=== PATIENT | female | born 1960 | race Caucasian/White ===

== ENCOUNTER 2020-02-23 06:54 | Outpatient (NON) | payer OTHER, SELFPAY ==
[2020-02-23 23:37] LABS: SARS-CoV-2 RNA PCR Positive
== END 2020-02-23 06:55 ==
LOC: ANHCOVIDDT 07:14
PROVIDERS: PCP Internal Medicine; Visit Provider Nurse Practitioner
DX: U07.1 COVID-19 (principal)
CPT/HCPCS: 87635; C9803; U0003

== ENCOUNTER 2020-02-25 00:54 | Emergency (ER) | payer OTHER, SELFPAY ==
[2020-02-25 00:59] VITALS: BP 156/84; PULSE 72; RESP 18; TEMP 36.6; O2SAT 95
--- NOTE | 2020-02-25 01:29 | ED.ALLEREA ---
HPI - Allergic Reaction General Chief complaint: Allergic Reaction Stated complaint: weakness/dizziness Time Seen by Provider: 02/25/20 01:08 Source: patient Mode of arrival: ambulatory Limitations: no limitations History of Present Illness HPI narrative: Patient 59-year-old female complaining of tongue and throat swelling after taking nystatin today. Patient states that she was prescribed nystatin due to oral thrush. Denies any extremity swelling or rash. Denies any chest pain, shortness of breath, abdominal pain, fever or chills. Patient's complaint is not weakness. Patient states that she was recently diagnosed with Covid. complaint: allergic reaction Related Data Home Medications Medication Instructions Recorded Confirmed blood sugar diagnostic #10 each 02/25/19 07/01/19 anastrozole 1 mg tablet 1 mg PO DAILY 05/11/19 07/01/19 vitamin B complex 1 tablet PO DAILY 05/11/19 07/01/19 Allergies Allergy/AdvReac Type Severity Reaction Status Date / Time No Known Allergies Allergy Mild Unverified 02/21/08 20:53 Review of Systems Review of Systems: All systems reviewed & are unremarkable except as noted in HPI and below Constitutional: Constitutional: Denies body ache(s), Denies chills, Denies excessive sweating, Denies fatigue, Denies fever(s), Denies headache(s), Denies lethargy, Denies malaise, Denies weakness and Denies weight loss Eyes: Eyes: Denies blurry vision, Denies change in vision and Denies loss of vision ENT: Denies dizziness, Denies ear discharge, Denies headache(s), Denies lip swelling, Denies epistaxis, Denies nasal congestion and Denies neck pain Cardiovascular: Cardiovascular: Denies chest pain, Denies chest pain at rest, Denies chest pain with activity, Denies diaphoresis, Denies rapid heart rate, Denies edema, Denies irregular heart rhythm, Denies lightheadedness, Denies palpitations, Denies dyspnea and Denies dyspnea on exertion Respiratory: Respiratory: Denies chest congestion, Denies cough, Denies hemoptysis, Denies dyspnea and Denies dyspnea on exertion Gastrointestinal: Gastrointestinal: Denies abdominal pain, Denies melena, Denies hematochezia, Denies diarrhea, Denies nausea, Denies vomiting and Denies hematemesis Musculoskeletal: Musculoskeletal: Denies abnormal gait, Denies deformity, Denies joint swelling, Denies limited range of motion, Denies neck pain and Denies numbness Neurologic: Denies Abnormal speech present, Denies abnormal gait, Denies confusion, Denies dizziness, Denies headache(s), Denies focal weakness, Denies loss of vision, Denies numbness, Denies Other visual disturbances, Denies Sensory deficit (Neuro) and Denies weakness Psychiatric: Psychiatric: Denies confusion, Denies depression, Denies auditory hallucinations, Denies homicidal ideation and Denies suicidal ideation Endocrine: Endocrine: Denies cold intolerance, Denies excessive sweating, Denies fatigue, Denies heat intolerance and Denies palpitations Hematologic/Lymphatic: Hematologic/Lymphatic: Denies easy bleeding and Denies easy bruising Allergic/Immunologic: Allergic/Immunologic: Denies lip swelling, Denies throat swelling and Denies tongue swelling PMFSH Past Medical History Medical History (Updated 02/25/20 @ 02:58 by Jose Landrum MD) Breast CA Chronic midline low back pain without sciatica GERD (gastroesophageal reflux disease) HLD (hyperlipidemia) Hypothyroidism (acquired) Pterygium of both eyes Pterygium of right eye corrected Type 2 diabetes mellitus, without long-term current use of insulin Surgical History Surgical History (Updated 02/25/19 @ 07:51 by Teresa Palumbo CMA) H/O lumpectomy Hx of cholecystectomy Family History Family History (Updated 10/10/17 @ 15:57 by DOCTOR UNKNOWN) Father Family history of pancreatic cancer Social History Social History (Updated 11/02/19 @ 08:37 by Teresa Palumbo CMA) Smoking status: Never smoker Alcohol intake: current Exam Cons
[2020-02-25 02:20] VITALS: BP 148/86; PULSE 76; RESP 16; TEMP 36.6; O2SAT 95
[2020-02-25] MEDS: diphenhydrAMINE HCl INJ 50 MG/ML VIAL 25 MG IV PUSH (02:51)
[2020-02-25] MEDS: EPINEPHrine HCL INJ 1 MG/ML AMPUL 0.3 MG IM (02:51)
[2020-02-25] MEDS: FAMOTIDINE 20 MG/2 ML VIAL IV PUSH (02:52)
[2020-02-25] MEDS: LACTATED RINGERS 1,000 ML 999 ML IV CONT (02:52)
[2020-02-25 03:35] VITALS: BP 148/91; PULSE 70; RESP 20; TEMP 36.5; O2SAT 94
== END 2020-02-25 03:36 | disposition home or self-care (01) ==
PROVIDERS: Emergency Provider Emergency Medicine; PCP Internal Medicine
DX: T78.40XA Allergy, unspecified, initial encounter (principal); U07.1 COVID-19; B37.0 Candidal stomatitis; K21.9 Gastro-esophageal reflux disease without esophagitis; E78.5 Hyperlipidemia, unspecified; E03.9 Hypothyroidism, unspecified; E11.9 Type 2 diabetes mellitus without complications; Z85.3 Personal history of malignant neoplasm of breast
CPT/HCPCS: 96361; 96372; 96374; 96375; 99284; J0171; J1100; J1200; J7120

== ENCOUNTER 2020-02-25 07:41 | Inpatient (IN) | payer OTHER, SELFPAY ==
[2020-02-25] VITALS (32 sets, daily range): BP systolic 136–205; BP diastolic 71–115; PULSE 75–114; RESP 16–33; TEMP 35.8–36.8; O2SAT 95–100; BMI 38.5
--- NOTE | 2020-02-25 | ECHO_ITS ---
Patient Info Name: Chantel Aguirre Age: 59 years : 1960 Gender: Female Ht: 67 in Wt: 217 lbs BSA: 2.19 m2 HR: 78 bpm BP: 165 / 99 mmHg Heart Rhythm: Sinus Rhythm Technical Quality: Fair Exam Date: 02/25/2020 4:04 PM Exam Location: [facility] Pulmonary Exam Room: icu 12 Patient Status: Inpatient Admit Date: 02/25/2020 Staff Ordering Physician: Brielle Patten NP Heating And Cooling Systems Engineer: Samira Corbin RDCS Attending Provider: Sharif Huertas MD Referring Physician: Sandor FOX; Exam Type: CA echo doppler color flow Study Info Indications - COVID ELEVATED BNP Complete two-dimensional, color flow and Doppler transthoracic echocardiogram is performed. Summary 1. Complete two-dimensional, color flow and Doppler transthoracic echocardiogram is performed. 2. Left ventricular chamber dimension is normal. 3. There is moderate concentric increased left ventricular wall thickness. 4. Left ventricular systolic function is normal, estimated at 50-55%. 5. There is trace mitral valve regurgitation. Left Ventricle Left ventricular chamber dimension is normal. Left ventricular systolic function is normal, estimated at 50-55%. There is moderate concentric increased left ventricular wall thickness. The left ventricular diastolic function is grade I diastolic dysfunction. Right Ventricle Right ventricular chamber dimension is normal. Left Atria Left atrial chamber dimension is normal. Right Atria Right atrial chamber dimension is normal. Aortic Valve The aortic valve is normal. Pulmonic Valve The pulmonic valve is normal. Mitral Valve The mitral valve has normal leaflets. There is trace mitral valve regurgitation. Tricuspid Valve The tricuspid valve leaflets are normal. Pericardium/Pleural The pericardium appears normal. Aorta The aortic root size at the sinus of Valsalva is normal. Left Ventricular Outflow Tract Name Value Normal LVOT 2D LVOT Diameter 2.0 cm LVOT Doppler LVOT Peak Gradient 4 mmHg LVOT Mean Gradient 2 mmHg LVOT VTI 21 cm LVOT VTI/AV VTI Ratio 0.9 LVOT Stroke Volume 63 ml LVOT CO 13.4 l/min LVOT CI 6.1 l/min/m2 Pulmonic Valve Name Value Normal PV Doppler PV Peak Gradient 2 mmHg Mitral Valve Name Value Normal MV Doppler MV Decel [place] 487 cm/s2 MV PHT 44 ms
--- NOTE | ~2020-02-25 | CT_ITS ---
EXAMINATION: CT soft tissue neck w con EXAM DATE: 02/25/2020 10:00 INDICATION: Shortness of air. Sore throat. COVID 19 positive. Thrush with tongue swelling. TECHNIQUE: Spiral CT of the neck was performed following intravenous injection of 75 mL Omnipaque 350 . Axial, coronal and sagittal images were reviewed. The dose-length product (DLP) for this examinat ion was 622.24 mGy-cm. The exposure was tailored according to patient size (auto mA exposure control ), and iterative reconstruction (ASIR) was used as additional dose reduction technique. There is no prior study for comparison. FINDINGS: The thyroid gland is unremarkable. The submandibular and parotid glands are symmetric. There is no cervical lymphadenopathy. There are no masses identified. The superior mediastinum is unremarkable. There is mild enlargement of the tonsils. Epiglottis is normal in thickness. Nasopharynx is collapsed at time of imaging. Hypopharynx is significantly narrowed at time of imaging, could be phasic or fro m regional edema. The opacified vasculature is patent. Right-sided cataract surgery. Right frontal sinus has moderate amount of mucoperiosteal thickening. Mild to moderate left maxillary sinus mucoperiosteal thickening. Bilateral groundglass opacities consistent with edema or infection . There is cervical spondylosis. There is cardiomegaly. IMPRESSION: 1. Narrowed hypopharyngeal and nasopharyngeal airway, could be phasic or from regional edema. Epiglo ttis normal in thickness. 2. Bilateral groundglass opacities, infection versus edema. 3. Right frontal and left maxillary sinus mucoperiosteal thickening. 4. Cardiomegaly. Reviewed, dictated and finalized at location A. T PARKING ATTENDANT IMPRESSION: 1. Narrowed hypopharyngeal and nasopharyngeal airway, could be phasic or from regional edema. Epiglottis normal in thickness. 2. Bilateral groundglass opacities, infection versus edema. 3. Right frontal and left maxillary sinus mucoperiosteal thickening. 4. Cardiomegaly.
--- NOTE | ~2020-02-25 | US_ITS ---
US abdomen limited INDICATION: Elevated liver function tests. PROCEDURE: Realtime right upper abdominal ultrasound. COMPARISON: No prior studies for comparison. FINDINGS: The pancreas is normal without focal mass or pancreatic ductal dilation. Liver echotexture is increased, consistent with fatty infiltration. There is normal directional flow in the portal ve in. Gallbladder is surgically absent. Common bile duct measures 4 mm. Right renal echotexture is unremar kable. IMPRESSION: 1: Fatty infiltration of the liver. Reviewed, dictated and finalized at location B. GHT CALLER
--- NOTE | ~2020-02-25 | XR_ITS ---
EXAMINATION: XR chest 1V portable EXAM DATE: 02/26/2020 06:19 INDICATION: Intubated. COVID 19 positive. TECHNIQUE: Portable AP frontal chest x-ray was obtained. Comparison is made to prior examination from 02/25/2020. FINDINGS: Endotracheal tube tip is 3.5 centimeters above the aviva. Feeding tube is in position. Sc attered bibasilar acute airspace disease partly atelectasis but also possibly with superimposed pneum onia. There is cardiomegaly. There is no pneumothorax suspected. There are no pleural effusions. Ther e are no osseous abnormalities identified. IMPRESSION: 1. Tubes in position. 2. Developing bibasilar atelectasis and possibly superimposed infection. Reviewed, dictated and finalized at location A. RANCE REP
--- NOTE | ~2020-02-25 | XR_ITS ---
EXAMINATION: XR chest ET placement EXAM DATE: 02/25/2020 10:41 INDICATION: Intubated. TECHNIQUE: Portable AP frontal chest x-ray was obtained. Comparison is made to prior examination from 02/25/2020. FINDINGS: Endotracheal tube is about 2 cm into the left mainstem bronchus, should be retracted approx imately 4 cm. Feeding tube is in position. There has been partial collapse of the right lung with ips ilateral mediastinal shift. There is cardiomegaly. Left lung is clear, cannot appreciate the groundgl ass opacity seen on CT. No pneumothorax. IMPRESSION: 1. ET tube in left mainstem bronchus, please retract 4 cm. 2. Partially collapsed right lung. I discussed endotracheal position, recommendation emergency room nurse at 02/25/2020 10:45 M1A1 TANK CREWMAN. Reviewed, dictated and finalized at location A. M1A1 TANK CREWMAN IMPRESSION: 1. ET tube in left mainstem bronchus, please retract 4 cm. 2. Partially collapsed right lung. I discussed endotracheal position, recommendation emergency room nurse at 2019 10:45 M1A1 TANK CREWMAN.
--- NOTE | ~2020-02-25 | XR_ITS ---
XR abdomen NG/feed tube insert 02/25/2020 10:41 Indication: G-tube placement Procedure: AP portable chest Comparison: No prior studies for comparison. Findings: NG tube in the stomach. There is opacification the right lung with mediastinal shift to the right, compatible with volume loss endotracheal tube tip 1 cm above the aviva. There are cholecyste ctomy clips. Impression: 1: NG tube in the stomach. 2: Right thoracic volume loss with mediastinal shift to the right. Reviewed, dictated and finalized at location B. RACT SHELTERED WORKSHOP SUPERVISOR Impression: 1: NG tube in the stomach. 2: Right thoracic volume loss with mediastinal shift to the right.
--- NOTE | ~2020-02-25 | CT_ITS ---
EXAMINATION: CT brain wo con DATE: 02/27/2020 09:17 INDICATION: Patient unresponsive TECHNIQUE: Computed tomography (CT) of the head was performed without intravenous contrast. The dose- length product was 605.33 mGy-cm. Automated exposure control and iterative reconstruction technique w ere employed. COMPARISON: None FINDINGS: Brain parenchymal volume is normal for age. There are scattered mild periventricular and martinez bcortical white matter changes, most likely related to small vessel ischemic disease (microangiopathy ). No ventriculomegaly or midline shift. Basilar cisterns are patent. No acute intracranial hemorrhag e, infarction, mass or mass effect. Midline sagittal images are unremarkable. There is mucosal thicke dexter of the sphenoid, ethmoid and right frontal sinuses. Mastoids are pneumatized. IMPRESSION: 1. No acute intracranial abnormality. 2: Moderate sinus disease. 3: Chronic age-related findings. Reviewed, dictated and finalized at location A. TAL COMPOSER
--- NOTE | ~2020-02-25 | XR_ITS ---
XR chest 1V portable 02/25/2020 11:11 Indication: Endotracheal tube evaluation Procedure: AP portable chest Comparison: 02/25/2020 Findings: Endotracheal tube tip 4.1 cm above the aviva. NG tube in the stomach. Cardiomegaly. Elevat ed right diaphragm. Right basilar atelectasis. Shallow inspiration. Impression: 1: Elevated right diaphragm with right basilar atelectasis. 2: Cardiomegaly. Reviewed, dictated and finalized at location B. A/C TECH Impression: 1: Elevated right diaphragm with right basilar atelectasis. 2: Cardiomegaly.
--- NOTE | ~2020-02-25 | XR_ITS ---
EXAMINATION: XR chest 1V portable DATE: 02/25/2020 08:51 INDICATION: Shortness of breath. TECHNIQUE: A single frontal view of the chest was obtained. COMPARISON: None. FINDINGS: The lung volumes are small. There are airspace opacities at the lung bases. There are mild airspace opacities in the perihilar regions. There is a small left pleural effusion. No pneumothorax. The heart size is obscured. IMPRESSION: 1. Small lung volumes with airspace opacities at the lung bases and in the perihilar regions, consist ent with atelectasis versus pneumonia. 2. Small left pleural effusion. Reviewed, dictated and finalized at location A. OWS APPLICATION DEVELOPER IMPRESSION: 1. Small lung volumes with airspace opacities at the lung bases and in the haley hilar regions, consistent with atelectasis versus pneumonia. 2. Small left pleural effusion.
--- NOTE | ~2020-02-25 | XR_ITS ---
XR chest 1V portable 02/27/2020 05:44 Indication: Respiratory failure Procedure: AP view of the chest Comparison: Comparison to multiple prior studies sequentially, with oldest reviewed study dated 05/2019. Findings: Endotracheal tube tip 3.9 cm above the aviva. NG tube in the stomach. Right subclavian PIC C line tip in the SVC. Cardiomegaly. Bilateral lower lung zone airspace disease. No pneumothorax. Impression: 1: Bilateral lower lung zone airspace disease which may represent atelectasis or pneumonia. Slight in terval improvement since most recent study. Reviewed, dictated and finalized at location A. BED PRESS OPERATOR Impression: 1: Bilateral lower lung zone airspace disease which may represent atelectasis o r pneumonia. Slight interval improvement since most recent study.
--- NOTE | 2020-02-25 08:43 | ED.SOB ---
HPI - SOB/Dyspnea General Chief Complaint: Shortness of Breath/Dyspnea Stated Complaint: weakness Time Seen by Provider: 02/25/20 07:57 History of Present Illness HPI Narrative: Patient is a 59-year-old female who presents the ER with shortness of breath. She is found to be hypoxic by EMS 80% on room air. Patient has been seen in the ER last night for concern regarding an allergic reaction to oral nystatin. Patient reports that since 10 AM yesterday patient has been a unable to speak due to sore throat and feeling of swelling. She also reports that this is also causing her to not be able to swallow. Patient is communicating by writing on a piece of paper. Patient appears fatigued but is tolerating oral secretions. Reports she was diagnosed with COVID-19 yesterday after being swabbed the day before. Patient endorses some nausea. Related Data Home Medications Medication Instructions Recorded Confirmed anastrozole 1 mg tablet 1 mg PO DAILY 05/11/19 02/25/20 vitamin B complex 1 tablet PO DAILY 05/11/19 02/25/20 ketorolac 1 drp OPHTHALMIC (EYE) TID 02/25/20 02/25/20 polymyxin B sulf-trimethoprim 1 drp OPHTHALMIC (EYE) QID 02/25/20 02/25/20 prednisolone acetate 1 drp OPHTHALMIC (EYE) QID 02/25/20 02/25/20 Allergies Allergy/AdvReac Type Severity Reaction Status Date / Time nystatin Allergy Difficulty Verified 02/25/20 14:16 Swallowing Review of Systems Review of Systems: ROS unobtainable: Yes other (Review of systems limited due to patient's decreased ability to talk.) Constitutional: Constitutional: Denies chills, Reports fatigue, Denies fever(s) and Reports weakness ENT: Reports dysphagia, Reports nasal congestion and Reports sore throat Cardiovascular: Cardiovascular: Denies chest pain and Denies radiating jaw, neck or arm pain Respiratory: Respiratory: Denies cough, Reports dyspnea and Denies wheezing PMFSH Past Medical History Medical History (Updated 02/25/20 @ 16:25 by Daniel Alvarez MD) Breast CA treated with radiation and lumpectomy Chronic midline low back pain without sciatica GERD (gastroesophageal reflux disease) HLD (hyperlipidemia) HTN (hypertension), benign Hypothyroidism (acquired) Pterygium of both eyes Pterygium of right eye corrected Type 2 diabetes mellitus, without long-term current use of insulin Surgical History Surgical History H/O lumpectomy Hx of cholecystectomy Family History Family History Father Family history of pancreatic cancer Social History Social History (Updated 02/25/20 @ 14:01 by Brielle Patten NP) Social History: the patient currently works for [employer] 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 She is a full code. Has 1 child nonsmoker. Smoking status: Never smoker Alcohol intake: unknown Substance use: unknown Living arrangements: with family Occupation/Education: occupation Spiritual care concerns: No Exam Narrative: Exam Narrative: GENERAL: ill-appearing, well-nourished, and in no acute distress. HEAD: Normocephalic, atraumatic. EYES: PERRL and EOMI. ENT: Mucous membranes moist. White patch noted left upper hard palate. Uvula midline and nonedematous. No edema to the tongue. No lip swelling. NECK: Supple. CHEST: Clear to auscultation. Tachypnea. No wheezing/rhonchi or stridor. HEART: Regular rate and rhythm. Normal peripheral pulses. ABDOMEN: Soft, nontender, nondistended. EXTREMITIES: Normal range of motion. No edema. SKIN: Warm, dry, no rash. NEURO: Alert and oriented x3. Course Reevaluation(s) Reevaluation #1: Patient has been resting comfortably in ED. Has been titrated on 4 L of O2 via nasal cannula and was satting in the mid 90s. Patient was reports some nausea before CT and zofran was ordered. On CT patient got up from the bed and laid herself on
[2020-02-25 09:06] LABS: Alanine Aminotransferase 146 U/L (4-35); Albumin Level 3.7 g/dL (3.5-5.1); Alkaline Phosphatase 362 U/L (38-126); Anion Gap 12 mmol/L (8-16); Aspartate Amino Transferase 57 U/L (14-36); Bilirubin,Total 0.9 mg/dL (0.2-1.3); Blood Urea Nitrogen 15 mg/dL (7-17); CRP 4.4 mg/dL (<1.0); Calcium 8.6 mg/dL (8.4-10.2); Carbon Dioxide 25 mmol/L (22-30); Chloride 101 mmol/L (98-107); Estimated Glomerular Filt Rate > 60; Glucose 492 mg/dL (65-105); Potassium 3.6 mmol/L (3.4-5.0); Sodium 138 mmol/L (137-145)
[2020-02-25 09:25] LABS: Alveolar/Arterial O2 Gradient 121.4 mmHg; Base Excess ABG -0.1 mEq/l (+/-2.0); Carboxyhemoglobin 0.1 % THb (0-2.0); Fractional Inspired Oxygen 36 %; HCO3 ABG 27.2 mEq/l (22.0-26.0); Methemoglobin ABG 0.2 %THb (0-1.5); Oxygen Content ABG 16.3 %vol (16.0-22.0); Oxygen Saturation ABG 92.2 % (95.0-100.0); Oxyhemoglobin 91.7 % THb (90.0-100.0); PO2 ABG 70.3 mmHg (80.0-100.0); PO2 FiO2 Ratio Arterial Blood 1.95 %; Total Hemoglobin 12.6 g/dL (12.0-18.0); pH ABG 7.304 (7.350-7.450)
[2020-02-25 09:26] LABS: Device NASAL CANNULA; Modified Allen's Test Pass; Site Drawn RIGHT RADIAL
[2020-02-25 09:34] LABS: Basophils Percent Auto 0.2 % (0.2-1.2); Hematocrit 36.3 % (37.0-47.0); Hemoglobin 11.7 g/dL (12.0-15.0); Immature Granulocyte Absolute 0.35 K/mm3 (0.00-0.031); Immature Granulocyte Percent A 2.8 % (0-0.5); Lymphocytes Absolute Auto 0.94 K/mm3 (0.9-3.2); Lymphocytes Percent Auto 7.6 % (18.3-44.2); Mean Corpuscular HGB Conc 32.2 g/dl (32-36); Mean Corpuscular Hemoglobin 28.7 pg (26-34); Mean Corpuscular Volume 89.2 fl (80-100); Mean Platelet Volume 9.6 fl (7.4-10.4); Monocytes Absolute Auto 0.3 K/mm3 (0.1-0.6); Monocytes Percent Auto 2.2 % (2.6-8.5); Neutrophils Absolute Auto 10.7 K/mm3 (1.3-6.7); Neutrophils Percent Auto 87.2 % (45.5-73.1); Platelet Count Result 569 k/mm3 (150-375); Red Blood Count 4.07 M/mm3 (4.2-5.4); Red Cell Distribution Width 13.6 % (11.5-14.5); White Blood Count 12.3 K/mm3 (4.5-10.0)
[2020-02-25 09:44] LABS: Prothrombin Time 14.1 Seconds (11.1-14.7)
[2020-02-25 09:45] LABS: Partial Thromboplastin Time 30.3 SECONDS (22.3-36.8)
--- NOTE | 2020-02-25 09:59 | PC.NURSE ---
PT BROUGHT BACK EMERGENTLY FROM CT AFTER BECOMING UNRESPONSIVE AFTER SCAN. DR LOUISE AT BEDSIDE. NRB 15L PLACED. PREPARING TO INTUBATE PT AT THIS TIME. HR 190'S SAT'S 70'S WITH GOOD PLETH. RESPS 22 BP164/103.
--- NOTE | 2020-02-25 10:03 | PC.NURSE ---
30ETOMIDATE GIVEN 100SUCC GIVEN
--- NOTE | 2020-02-25 10:07 | ECG_ITS ---
Measurements Intervals [place] Rate: 86 P: 24 WV: 159 QRS: -30 QRSD: 110 T: 7 QT: 425 QTc: 510 Interpretive Statements SINUS RHYTHM INCOMPLETE RIGHT BUNDLE BRANCH BLOCK LOW QRS VOLTAGE IN PRECORDIAL LEADS VOLTAGE CRITERIA FOR LVH POOR R WAVE PROGRESSION, ANTERIOR LEADS BORDERLINE T WAVE ABNORMALITY- INFERIOR LEADS BASELINE ARTIFACT- I, II, III, AVR, AVL, AVF, V5 BORDERLINE ECG Electronically Signed On 02-25-2020 11:10:29 BRIDGE GANG WORKER by Randal Dvais D.O.
[2020-02-25 10:29] LABS: NT Pro B Type Natriuretic Pept 2960 PG/ML (5-100)
[2020-02-25] MEDS: ONDANSETRON INJ 4 MG/2 ML VIAL IV PUSH (10:58)
[2020-02-25] MEDS: FUROSEMIDE INJ 40 MG/4 ML VIAL IV PUSH (11:00)
[2020-02-25 11:47] LABS: Reflex Lactic Acid Yes or No Add Lactic
[2020-02-25] MEDS: PROPOFOL IV EMULSION 100 ML 5 MG IV CONT (13:10)
--- NOTE | 2020-02-25 13:34 | PM.IMHP ---
H&P: HPI History of Present Illness Date/Time: 02/25/20 13:34 Chief complaint: acute respiratory failure,chf exacerbation,covid Narrative: Chantel Aguirre is a 59 year old female who was seen in the emergency room earlier this morning she had been complaining of tongue and throat swelling after taking nystatin today. The patient stated that she was prescribed nystatin due to oral thrush. Patient tested positive for COVID-19 on 02/23/2020. The patient came into the emergency room today because she was short of breath. She is found to be hypoxic by EMS at 80% on room air. Patient felt that she was having allergy agree action to the oral nystatin. Patient was unable to speak due to sore throat and feeling like her throat was swollen up. When I saw the patient in the emergency room she had been intubated. Her pH was found to be 7.30 on her blood gases CO2 was 56. The patient initially had been on 4 L per nasal cannula and was saturating in the mid 90s. The patient was feeling nauseated before her CT scan and Zofran was ordered. The patient was on the table for the CT scanner and stopped breathing. She was immediately wheeled over by the traffic technician the patient was in distress and therefore emergent intubation was required. When I talked to the patient she was able to answer questions by shaking her head yes or no. She is currently not on any IV sedation. It looks like she has a tidal volume of 400 with a PEEP of 5. Chest x-ray was obtained and the ET tube was pulled back. ICU fisher pound net or trap had been notified and agreed to accept the patient. The patient was started on IV antibiotics. She is afebrile. ALT was noted to be 146. Explain past days 362. C reactive protein 4.4. BNP 2960. The patient was responsive enough to answer questions by shaking her head yes and no. Patient was admitted inpatient to ICU on date of service 02/25/20. Review of Systems Review of Systems: All systems reviewed & are unremarkable except as noted in HPI and below Constitutional: Constitutional: Reports as per HPI and Reports no additional constitutional complaints Eyes: Eyes: Reports as per HPI and Reports no additional eye complaints ENT: Reports system reviewed and no additional complaints, except as documented and Reports Normal hearing present Cardiovascular: Cardiovascular: Reports no additional cardiovascular complaints Respiratory: Respiratory: Reports no additional respiratory complaints and Reports no additional respiratory complaints Gastrointestinal: Gastrointestinal: Reports as per HPI and Reports no additional gastrointestinal complaints Musculoskeletal: Musculoskeletal: Reports no additional musculoskeletal complaints Integumentary/Breasts: Skin/Breast: Reports system reviewed and no additional complaints, except as docu and Reports as per HPI Neurologic: Reports system reviewed and no additional complaints, except as documented, Reports as per HPI and Reports Normal hearing present Psychiatric: Psychiatric: Reports no additional psychiatric complaints and Reports as per HPI Endocrine: Endocrine: Reports no additional endocrine complaints Hematologic/Lymphatic: Hematologic/Lymphatic: Reports no additional hematologic/lymphatic complaints Allergic/Immunologic: Allergic/Immunologic: Reports no additional allergic/immunologic complaints [facility] Past Medical History Medical History (Updated 02/25/20 @ 14:24 by Brielle Patten NP) Breast CA treated with radiation and lumpectomy Chronic midline low back pain without sciatica GERD (gastroesophageal reflux disease) HLD (hyperlipidemia) HTN (hypertension), benign Hypothyroidism (acquired) Pterygium of both eyes Pterygium of right eye corrected Type 2 diabetes mellitus, without long-term current use of insulin Surgical History Surgical History H/O lumpectomy Hx of cholecystectomy Family History Family History (Reviewed 02/25/20
--- NOTE | 2020-02-25 14:08 | ADMGEN ---
This patient, Chantel Aguirre, was admitted to Intensive Care Unit-12. Patient/family oriented to hospital policies and general routines including ID bracelet, bed and alarms, visiting hours, pain management, procedures, bathroom and other care routines, personal items, smoking policy, room service/diet, and visiting hours. Information on how to activate the Rapid Response Team has been discussed. Patient/Family are encouraged to report perceived risks to care and to ask questions if they do not understand what they are told or what they should do.
--- NOTE | 2020-02-25 14:20 | PC.NURSE ---
Patient's ring removed from her finger and in a ziploc bag taped to her white board. Patient has clothing and her purse on the desk in her room.
--- NOTE | 2020-02-25 14:31 | WPDCNINT ---
Assessment and Plan Assessment and plan (1) Acute respiratory failure: Code(s): J96.00 - Acute respiratory failure, unspecified whether with hypoxia or hypercapnia Status: Acute Assessment and Plan: Patient had possible allergic reaction, angioedema. -CT scan of the neck and soft tissues on 02/25/2020 showed narrowed hypopharyngeal and nasopharyngeal airway, could be phasic or from recent edema. The glottis normal in thickness. Bilateral ground-glass opacities, infectious versus edema, right frontal and left maxillary sinus mucoperiosteal thickening, cardiomegaly. -patient was in respiratory arrest post CT scan of the neck, unresponsive, was intubated for airway protection. -chest x-ray shows atelectasis right-sided -patient currently on CMV mode of ventilation, peep of 5, 70% FiO2, ABGs post intubation have not been obtained, have ordered ABG stat, will review ABGs and make necessary ventilator changes - (2) COVID-19: Code(s): U07.1 - COVID-19 Status: Acute Assessment and Plan: Tested positive for COVID-19 on 02/23/2020 -started on dexamethasone Remdesivir -continue droplet, airborne contact isolation precautions -will monitor inflammatory markers (3) Allergic reaction caused by a drug: Qualifiers: Encounter type: initial encounter Qualified Code(s): T78.40XA - Allergy, unspecified, initial encounter Code(s): T78.40XA - Allergy, unspecified, initial encounter Status: Acute Assessment and Plan: Patient possibly with allergic reaction to nystatin, patient fell swelling of her throat, difficulty talking and swallowing -patient started on dexamethasone for COVID-19, -will add H1 and H2 blockers (4) Type 2 diabetes mellitus, without long-term current use of insulin: Qualifiers: Diabetes mellitus complication status: without complication Qualified Code(s): E11.9 - Type 2 diabetes mellitus without complications Code(s): E11.9 - Type 2 diabetes mellitus without complications Status: Acute Assessment and Plan: Continue sliding scale insulin Accu-Cheks (5) HTN (hypertension), benign: Code(s): I10 - Essential (primary) hypertension Status: Chronic Assessment and Plan: Hydralazine p.r.n. -patient on propofol which may for the pressures to -if blood pressures remain elevated will start home losartan (6) Elevated liver enzymes: Code(s): R74.8 - Abnormal levels of other serum enzymes Status: Acute Assessment and Plan: Elevated liver enzymes, could be related to for vascular congestion secondary CHF -check right upper quadrant ultrasound -hepatitis panel -echocardiogram (7) DVT prophylaxis: Code(s): Z29.9 - Encounter for prophylactic measures, unspecified Status: Acute Assessment and Plan: Lovenox 40 mg q.12 hours Additional Plan D/w Miguel Ángel, Pt's and updated him [facility] pt's condition and plan of care. I answered all questions Code status: Full code Critical care time spent: 44 minutes Due to a high probability of clinically significant, life threatening deterioration, the patient required my highest level of preparedness to intervene emergently and I personally spent this critical care time directly and personally managing the patient. This critical care time included obtaining a history; examining the patient; pulse oximetry; ordering and review of studies; arranging urgent treatment with development of a management plan; evaluation of patient's response to treatment; frequent reassessment; and discussions with other providers. It was exclusive of separately billable procedures and treating other patients and teaching time. Please see Assessment and Plan section and the rest of the note for further information on patient assessment and treatment Residential Sales Consult Note Consult date: 02/25/20 Time Seen: 13:44 Reason for consult: Acute respiratory failure, allergic reaction w
[2020-02-25 14:52] LABS: Alveolar/Arterial O2 Gradient 318.5 mmHg; Base Excess ABG 3.6 mEq/l (+/-2.0); Fractional Inspired Oxygen 70 %; HCO3 ABG 27.7 mEq/l (22.0-26.0); Oxygen Content ABG 16.9 %vol (16.0-22.0); Oxygen Saturation ABG 98.9 % (95.0-100.0); Oxyhemoglobin 97.7 % THb (90.0-100.0); PCO2 ABG 39.8 mmHg (35.0-45.0); PO2 ABG 137.8 mmHg (80.0-100.0); PO2 FiO2 Ratio Arterial Blood 1.97 %; Total Hemoglobin 12.1 g/dL (12.0-18.0)
[2020-02-25 14:53] LABS: Arterial Blood Gas PEEP 5 cmH2O; Arterial Blood Gas Tidal Volume 400 ml; Arterial Blood Gas Vent Mode CMV; Arterial Blood Gas Ventilator rate 18 /MIN; Device VENTILATOR; Site Drawn RIGHT BRACHIAL
[2020-02-25] MEDS: DEXAMETHASONE SOD PHOS INJ 4 MG/ML VIAL 6 MG IV PUSH (15:06)
[2020-02-25] MEDS: diphenhydrAMINE HCl INJ 50 MG/ML VIAL 25 MG IV PUSH ×3 (15:12→23:44)
[2020-02-25] MEDS: FAMOTIDINE 20 MG/2 ML VIAL IV PUSH ×2 (15:22→20:40)
[2020-02-25 15:38] LABS: Alanine Aminotransferase 142 U/L (4-35); Lactic Acid Reflex 1.8 mmol/L (0.7-2.1)
[2020-02-25] MEDS: PROPOFOL IV EMULSION 100 ML 8.89 MG IV CONT (15:46)
[2020-02-25] MEDS: LIDOCAINE HCL 1% PF INJ 5 ML VIAL INFILTRATE (16:30)
[2020-02-25] MEDS: SODIUM CHLORIDE 0.9% IV 1,000 ML 75 ML IV CONT (17:12)
[2020-02-25] MEDS: REMDESIVIR 200 MG/NS 250 ML 200 MG/250 ML BAG 250 MG IVPB (17:12)
[2020-02-25] MEDS: KETOROLAC 0.5% OP SOLN 5 ML BOTTLE 1 DROP EACH EYE (17:18)
[2020-02-25] MEDS: INSULIN ASPART (*BKC) 100 UNITS/ML SUB-Q ×2 (17:26→23:54)
[2020-02-25] MEDS: hydrALAZINE HCL 20 MG/ML VIAL 10 MG IV PUSH (17:27)
[2020-02-25 18:51] LABS: Hepatitis B Surface Antigen Negative (Negative)
[2020-02-25 18:56] LABS: HAV RESULT Negative (Negative); Hepatitis B Core IgM Result Negative (Negative)
[2020-02-25 19:08] LABS: Hepatitis C Virus Antibody Negative (Negative)
[2020-02-25] MEDS: PROPOFOL IV EMULSION 100 ML 14.82 MG IV CONT (19:14)
[2020-02-25] MEDS: INSULIN ASPART (*BKC) 100 UNITS/ML 6 UNITS SUB-Q (19:15)
[2020-02-25 19:21] LABS: Glucose Point of Care 440 (65-105)
[2020-02-25] MEDS: ENOXAPARIN 40 MG/0.4 ML SYRINGE SUB-Q (20:40)
[2020-02-25] MEDS: IPRATROPIUM BR 0.02% INH SOLN 0.5 MG/2.5 ML VIAL INHALATION (21:30)
[2020-02-25] MEDS: ALBUTEROL SULFATE NEB 2.5 MG/0.5 ML INH INHALATION (21:30)
[2020-02-25] MEDS: CENTRAL LINE FLUSH 10 ML IV PUSH (22:18)
[2020-02-26] VITALS (37 sets, daily range): BP systolic 142–198; BP diastolic 67–104; PULSE 66–112; RESP 16–27; TEMP 35.8–36.9; O2SAT 98–100
[2020-02-26 00:48] LABS: Glucose Point of Care 331 (65-105)
[2020-02-26 00:48] LABS: Glucose Point of Care > 500 (65-105)
[2020-02-26] MEDS: hydrALAZINE HCL 20 MG/ML VIAL 10 MG IV PUSH ×4 (02:11→14:27)
[2020-02-26] MEDS: PROPOFOL IV EMULSION 100 ML 14.82 MG IV CONT ×4 (02:23→19:44)
[2020-02-26] MEDS: ALBUTEROL SULFATE NEB 2.5 MG/0.5 ML INH INHALATION ×4 (02:29→19:51)
[2020-02-26] MEDS: IPRATROPIUM BR 0.02% INH SOLN 0.5 MG/2.5 ML VIAL INHALATION ×4 (02:29→19:51)
[2020-02-26 05:04] LABS: Alveolar/Arterial O2 Gradient 224.5 mmHg; Base Excess ABG 5.6 mEq/l (+/-2.0); Carboxyhemoglobin 0.3 % THb (0-2.0); Fractional Inspired Oxygen 50 %; Methemoglobin ABG 0.2 %THb (0-1.5); Oxygen Content ABG 15.8 %vol (16.0-22.0); Oxygen Saturation ABG 97.5 % (95.0-100.0); Oxyhemoglobin 96.2 % THb (90.0-100.0); PCO2 ABG 37.8 mmHg (35.0-45.0); PO2 ABG 89.5 mmHg (80.0-100.0); PO2 FiO2 Ratio Arterial Blood 1.79 %; Reduced Hemoglobin 3.3 %THb (0-5.0); Total Hemoglobin 11.6 g/dL (12.0-18.0); pH ABG 7.503 (7.350-7.450)
[2020-02-26 05:05] LABS: Modified Allen's Test Pass; Site Drawn RIGHT RADIAL
[2020-02-26 05:06] LABS: Arterial Blood Gas PEEP 5 cmH2O; Arterial Blood Gas Tidal Volume 400 ml; Arterial Blood Gas Vent Mode CMV; Arterial Blood Gas Ventilator rate 16 /MIN; Device VENTILATOR
[2020-02-26] MEDS: CENTRAL LINE FLUSH 10 ML IV PUSH ×2 (05:27→14:29)
[2020-02-26] MEDS: diphenhydrAMINE HCl INJ 50 MG/ML VIAL 25 MG IV PUSH ×3 (05:29→18:48)
[2020-02-26] MEDS: LEVOTHYROXINE SODIUM INJ 100 MCG/5 ML VIAL 56 MCG IV PUSH (05:31)
[2020-02-26 05:49] LABS: Basophils Percent Auto 0.2 % (0.2-1.2); Eosinophils Percent Auto 0.1 % (0-4.4); Hematocrit 32.8 % (37.0-47.0); Hemoglobin 10.8 g/dL (12.0-15.0); Immature Granulocyte Absolute 0.18 K/mm3 (0.00-0.031); Immature Granulocyte Percent A 1.6 % (0-0.5); Lymphocytes Absolute Auto 1.33 K/mm3 (0.9-3.2); Lymphocytes Percent Auto 12.1 % (18.3-44.2); Mean Corpuscular HGB Conc 32.9 g/dl (32-36); Mean Corpuscular Hemoglobin 28.9 pg (26-34); Mean Corpuscular Volume 87.7 fl (80-100); Mean Platelet Volume 9.4 fl (7.4-10.4); Monocytes Absolute Auto 0.6 K/mm3 (0.1-0.6); Monocytes Percent Auto 5.5 % (2.6-8.5); Neutrophils Absolute Auto 8.9 K/mm3 (1.3-6.7); Neutrophils Percent Auto 80.5 % (45.5-73.1); Platelet Count Result 453 k/mm3 (150-375); Red Blood Count 3.74 M/mm3 (4.2-5.4); Red Cell Distribution Width 13.8 % (11.5-14.5)
[2020-02-26 06:09] LABS: Hemoglobin A1C 8.1 % (<5.7)
[2020-02-26 06:12] LABS: Alanine Aminotransferase 125 U/L (4-35); Albumin Level 3.3 g/dL (3.5-5.1); Alkaline Phosphatase 317 U/L (38-126); Anion Gap 7 mmol/L (8-16); Aspartate Amino Transferase 57 U/L (14-36); Bilirubin,Total 0.5 mg/dL (0.2-1.3); Blood Urea Nitrogen 16 mg/dL (7-17); CRP 2.4 mg/dL (<1.0); Calcium 8.6 mg/dL (8.4-10.2); Carbon Dioxide 35 mmol/L (22-30); Chloride 100 mmol/L (98-107); Estimated CRCL calculation 81 ml/min; Estimated Glomerular Filt Rate > 60; Glucose 312 mg/dL (65-105); Lactate Dehydrogenase 554 U/L (313-618); Magnesium 2.3 mg/dL (1.6-2.3); Phosphorus 3.6 mg/dL (2.5-4.5); Potassium 2.4 mmol/L (3.4-5.0); Sodium 142 mmol/L (137-145)
[2020-02-26] MEDS: INSULIN ASPART (*BKC) 100 UNITS/ML SUB-Q (06:20)
[2020-02-26] MEDS: SODIUM CHLORIDE 0.9% IV 1,000 ML 75 ML IV CONT (08:10)
--- NOTE | 2020-02-26 09:24 | WPDINTPN ---
Progress Note: A&P Assessment and Plan (1) Acute respiratory failure: Code(s): J96.00 - Acute respiratory failure, unspecified whether with hypoxia or hypercapnia Status: Acute Assessment and Plan: Patient had possible allergic reaction, angioedema. -CT scan of the neck and soft tissues on 02/25/2020 showed narrowed hypopharyngeal and nasopharyngeal airway, could be phasic or from recent edema. The glottis normal in thickness. Bilateral ground-glass opacities, infectious versus edema, right frontal and left maxillary sinus mucoperiosteal thickening, cardiomegaly. -patient was in respiratory arrest post CT scan of the neck, unresponsive, was intubated for airway protection. -chest x-ray shows atelectasis right-sided -patient currently on CMV mode of ventilation, peep of 5, 50%FiO2, wean FiO2 maintain O2 sats between 92-96%. -patient has a very weak cuff leak, continue steroids, H1 and H2 blockers -neck swollen with some induration bilaterally, tongue is also swollen (2) COVID-19: Code(s): U07.1 - COVID-19 Status: Acute Assessment and Plan: Tested positive for COVID-19 on 02/23/2020 -started on dexamethasone Remdesivir -continue droplet, airborne contact isolation precautions -will monitor inflammatory markers (3) Allergic reaction caused by a drug: Qualifiers: Encounter type: initial encounter Qualified Code(s): T78.40XA - Allergy, unspecified, initial encounter Code(s): T78.40XA - Allergy, unspecified, initial encounter Status: Inactive Assessment and Plan: Patient possibly with allergic reaction to nystatin, patient fell swelling of her throat, difficulty talking and swallowing -patient started on dexamethasone for COVID-19, -continue H1 and H2 blockers (4) Type 2 diabetes mellitus, without long-term current use of insulin: Qualifiers: Diabetes mellitus complication status: without complication Qualified Code(s): E11.9 - Type 2 diabetes mellitus without complications Code(s): E11.9 - Type 2 diabetes mellitus without complications Status: Acute Assessment and Plan: Continue sliding scale insulin Accu-Cheks (5) HTN (hypertension), benign: Code(s): I10 - Essential (primary) hypertension Status: Chronic Assessment and Plan: -patient remains hypertensive, will add home losartan -continue p.r.n. hydralazine (6) Elevated liver enzymes: Code(s): R74.8 - Abnormal levels of other serum enzymes Status: Acute Assessment and Plan: Elevated liver enzymes, could be related to for vascular congestion secondary CHF -right upper quadrant ultrasound 02/25/2020 shows fatty infiltration of the liver which could be reason for her elevated liver enzymes -hepatitis panel negative -echocardiogram has been obtained, pending report (7) DVT prophylaxis: Code(s): Z29.9 - Encounter for prophylactic measures, unspecified Status: Acute Assessment and Plan: Lovenox 40 mg q.12 hours Additional Plan D/w Miguel Ángel, Pt's and updated him [facility] pt's condition and plan of care. I answered all questions Code status: Full code Critical care time spent: 33 minutes Due to a high probability of clinically significant, life threatening deterioration, the patient required my highest level of preparedness to intervene emergently and I personally spent this critical care time directly and personally managing the patient. This critical care time included obtaining a history; examining the patient; pulse oximetry; ordering and review of studies; arranging urgent treatment with development of a management plan; evaluation of patient's response to treatment; frequent reassessment; and discussions with other providers. It was exclusive of separately billable procedures and treating other patients and teaching time. Please see Assessment and Plan section and the rest of the note for further information on patient as
[2020-02-26] MEDS: POTASSIUM CHLORIDE 20 MEQ PACKET (FOR LIQUID) 40 MEQ FEED TUBE (09:46)
[2020-02-26] MEDS: FAMOTIDINE 20 MG/2 ML VIAL IV PUSH ×2 (09:53→19:45)
[2020-02-26] MEDS: INSULIN GLARGINE (*BKC) 100 UNITS/ML 7 UNITS SUB-Q (09:54)
--- NOTE | 2020-02-26 10:57 | PCDIET ---
Nutrition Follow-Up Complete: Nutrition Diagnosis: Inadequate oral intake related to oral intubation as evidenced by NPO status. Nutrition Goal: Patient to meet estimated nutritional needs. Goal in progress. MD ordered to start tube feedings today. Recommend Glucerna 1.2 at goal rate of 40mL/hr x 22 hours/day for 1056kcal (1447kcal with Propofol at current rate), 52g protein and 708mL free water. Suggest 30mL water flush every 4 hours. Last recorded weight is 91.9 kg which is down from last review. I/O noted. Bowel Motility: No documented BM as of yet. Labs Reviewed: Hgb (10.8), Hct (32.8), Glu (312), K (2.4), Alb (3.3), Lisa Ca (8.66) Meds Noted: Propofol (rate of 13.82mL/hr provides 391kcal per day), Albuterol, Azithromycin, Rocephin, Decadron, Pepcid, Apresoline, Novolog, Lantus, Atrovent, KCl, Pred Forte, Remdesivir, Vancomycin, NS at 75mL/hr Additional Notes: Skin intact. Will continue to monitor with same goal. Nutrition Monitoring and Evaluation: Follow up every Saturday/Saturday.
[2020-02-26] MEDS: DEXAMETHASONE SOD PHOS INJ 4 MG/ML VIAL 6 MG IV PUSH (12:25)
[2020-02-26] MEDS: LOSARTAN POTASSIUM 50 MG TABLET PO (12:25)
[2020-02-26] MEDS: REMDESIVIR 100 MG/NS 250 ML 100 MG/250 ML BAG 250 MG IVPB (12:26)
[2020-02-26] MEDS: KETOROLAC 0.5% OP SOLN 5 ML BOTTLE 1 DROP EACH EYE ×2 (12:27→18:47)
[2020-02-26 12:57] LABS: Glucose Point of Care 423 (65-105)
[2020-02-26] MEDS: INSULIN ASPART (*BKC) 100 UNITS/ML 15 UNITS SUB-Q (14:29)
[2020-02-26] MEDS: amLODIPine BESYLATE 5 MG TABLET 10 MG PO (15:19)
--- NOTE | 2020-02-26 16:05 | PM.IMPN ---
Progress Note: A&P Assessment and Plan (1) COVID-19: Code(s): U07.1 - COVID-19 Status: Acute Assessment and Plan: the patient had been complaining of a sore throat and was diagnosed with thrush. She initially felt like she was having the allergic reaction to the nystatin. After reading the notes from the emergency room it looks like she has quite a bit of laryngeal edema. The patient was intubated and placed on a ventilator. Dexamethasone and remdesivir started (2) Respiratory arrest: Code(s): R09.2 - Respiratory arrest Status: Acute Assessment and Plan: Is was reported that the patient has laryngeal edema and that the patient stopped breathing on the CT scan table. The patient was intubated and placed on a ventilator. Patient was placed on azithromycin and Rocephin. And vancomycin. (3) HTN (hypertension), benign: Code(s): I10 - Essential (primary) hypertension Status: Chronic Assessment and Plan: Patient's blood pressure was noted to be 165/99 earlier. 0 G-tube placed and patient started on amlodipine with her losartan. If laryngeal edema persists would be somewhat concerned about losarten (4) Type 2 diabetes mellitus, without long-term current use of insulin: Qualifiers: Diabetes mellitus complication status: without complication Qualified Code(s): E11.9 - Type 2 diabetes mellitus without complications Code(s): E11.9 - Type 2 diabetes mellitus without complications Status: Acute Assessment and Plan: Check her A1c. sliding scale insulin every 6 hours with Accu-Cheks. And start daily Lantus initially to 7 units (5) HLD (hyperlipidemia): Qualifiers: Hyperlipidemia type: mixed hyperlipidemia Qualified Code(s): E78.2 - Mixed hyperlipidemia Code(s): E78.5 - Hyperlipidemia, unspecified Status: Chronic Assessment and Plan: Patient has elevated liver enzymes some going to hold her statin at this time. (6) Elevated liver enzymes: Code(s): R74.8 - Abnormal levels of other serum enzymes Status: Acute Assessment and Plan: Could be related to the COVID 19 virus floor statin. Hepatitis profile was negative (7) Elevated brain natriuretic peptide (BNP) level: Code(s): R79.89 - Other specified abnormal findings of blood chemistry Status: Acute Assessment and Plan: an echo has been ordered. Subjective Date/time seen: 02/26/20 16:05 Interval history: Date of visit 02/25, 59-year-old hypertensive type 2 diabetic presented to ER with complaints of throat swelling and shortness of breath. Had respiratory arrest after CT scan of the neck and had to be intubated and mechanically ventilated. Now in the ICU. She is also COVID positive. Thought to possibly had allergic reaction to nystatin. Exam Narrative: Exam Narrative: Blood pressure 170/84 pulse is 92 saturating 93% on FiO2 of 45% with 5 of PEEP Pupils equal reactive light sclera anicteric ET tube in place but lips and tongue still appears slightly swollen and fullness submandibular on palpation Lungs clear CV regular rate rhythm Abdomen soft nontender Extremities without edema distal pulses are 2+ Neuro sedated on a ventilator Integument no skin breakdown rashes Objective Data Vital Signs Vital Signs: Vital Signs - 24 hr 02/25/20 18:00 02/25/20 19:14 02/25/20 20:00 Temperature 36.8 C 35.8 C L Pulse Rate 90 87 79 Respiratory Rate 17 16 16 Blood Pressure 159/76 H 136/71 Pulse Oximetry 99 99 02/25/20 21:31 02/25/20 21:41 02/25/20 22:00 Temperature Pulse Rate 82 85 75 Respiratory Rate 16 16 26 H Blood Pressure 166/76 H Pulse Oximetry 100 100 02/26/20 00:00 02/26/20 02:00 02/26/20 02:23 Temperature 36.9 C Pulse Rate 70 71 71 Respiratory Rate 18 16 16 Blood Pressure 173/82 H 154/72 H Pulse Oximetry 100 100 02/26/20 02:30 02/26/20 02:39 02/26/20 04:00 Temperature 36.5 C
[2020-02-26] MEDS: INSULIN ASPART (*BKC) 100 UNITS/ML 25 UNITS SUB-Q (18:50)
[2020-02-26] MEDS: INSULIN GLARGINE (*BKC) 100 UNITS/ML 10 UNITS SUB-Q (18:50)
[2020-02-26] MEDS: ENOXAPARIN 40 MG/0.4 ML SYRINGE SUB-Q (19:45)
[2020-02-26 21:47] LABS: Glucose Point of Care 439 (65-105)
[2020-02-26 23:45] LABS: Glucose Point of Care 321 (65-105)
[2020-02-27] VITALS (13 sets, daily range): BP systolic 132–173; BP diastolic 71–94; PULSE 80–104; RESP 15–21; TEMP 35.3–36; O2SAT 96–100
[2020-02-27] MEDS: INSULIN ASPART (*BKC) 100 UNITS/ML SUB-Q ×3 (01:12→13:02)
[2020-02-27] MEDS: CENTRAL LINE FLUSH 10 ML IV PUSH ×2 (01:12→05:44)
[2020-02-27] MEDS: diphenhydrAMINE HCl INJ 50 MG/ML VIAL 25 MG IV PUSH ×2 (01:13→05:43)
[2020-02-27 01:34] LABS: Vancomycin Trough 10.1 ug/mL (10.0-20.0)
[2020-02-27] MEDS: PROPOFOL IV EMULSION 100 ML 11.86 MG IV CONT (01:45)
[2020-02-27] MEDS: ALBUTEROL SULFATE NEB 2.5 MG/0.5 ML INH INHALATION ×3 (02:21→13:39)
[2020-02-27] MEDS: IPRATROPIUM BR 0.02% INH SOLN 0.5 MG/2.5 ML VIAL INHALATION ×3 (02:21→13:40)
[2020-02-27 05:33] LABS: Base Excess ABG 6.7 mEq/l (+/-2.0); HCO3 ABG 32.7 mEq/l (22.0-26.0); PCO2 ABG 52.1 mmHg (35.0-45.0); PO2 ABG 90.9 mmHg (80.0-100.0); pH ABG 7.415 (7.350-7.450)
[2020-02-27 05:34] LABS: Alveolar/Arterial O2 Gradient 134.4 mmHg; Oxygen Saturation ABG 96.9 % (95.0-100.0)
[2020-02-27 05:35] LABS: Carboxyhemoglobin 0.3 % THb (0-2.0); Device VENTILATOR; Fractional Inspired Oxygen 40 %; Methemoglobin ABG 0.3 %THb (0-1.5); Modified Allen's Test Unable to perform; PO2 FiO2 Ratio Arterial Blood 2.27 %; Reduced Hemoglobin 3.4 %THb (0-5.0); Site Drawn RIGHT RADIAL
[2020-02-27 05:36] LABS: Arterial Blood Gas PEEP 5 cmH2O; Arterial Blood Gas Tidal Volume 350 ml; Arterial Blood Gas Vent Mode ASSIST CONTROL; Arterial Blood Gas Ventilator rate 16 /MIN
[2020-02-27] MEDS: LEVOTHYROXINE SODIUM INJ 100 MCG/5 ML VIAL 56 MCG IV PUSH (05:44)
[2020-02-27 05:58] LABS: Glucose Point of Care 324 (65-105)
[2020-02-27 06:02] LABS: Hematocrit 32.9 % (37.0-47.0); Hemoglobin 10.6 g/dL (12.0-15.0); Mean Corpuscular HGB Conc 32.2 g/dl (32-36); Mean Corpuscular Hemoglobin 28.6 pg (26-34); Mean Corpuscular Volume 88.7 fl (80-100); Mean Platelet Volume 9.4 fl (7.4-10.4); Platelet Count Result 457 k/mm3 (150-375); Red Blood Count 3.71 M/mm3 (4.2-5.4); Red Cell Distribution Width 13.9 % (11.5-14.5); White Blood Count 10.6 K/mm3 (4.5-10.0)
[2020-02-27 06:15] LABS: Alanine Aminotransferase 90 U/L (4-35); Albumin Level 3.1 g/dL (3.5-5.1); Alkaline Phosphatase 264 U/L (38-126); Anion Gap 4 mmol/L (8-16); Aspartate Amino Transferase 32 U/L (14-36); Bilirubin,Total 0.4 mg/dL (0.2-1.3); Blood Urea Nitrogen 16 mg/dL (7-17); Calcium 8.5 mg/dL (8.4-10.2); Carbon Dioxide 35 mmol/L (22-30); Chloride 98 mmol/L (98-107); Estimated CRCL calculation 95 ml/min; Estimated Glomerular Filt Rate > 60; Glucose 338 mg/dL (65-105); Magnesium 2.3 mg/dL (1.6-2.3); Phosphorus 3.7 mg/dL (2.5-4.5); Potassium 3.1 mmol/L (3.4-5.0); Sodium 137 mmol/L (137-145)
[2020-02-27 06:19] LABS: Hemoglobin A1C 8.2 % (<5.7)
[2020-02-27] MEDS: hydrALAZINE HCL 20 MG/ML VIAL 10 MG IV PUSH (06:44)
[2020-02-27] MEDS: FAMOTIDINE 20 MG/2 ML VIAL IV PUSH (08:12)
[2020-02-27] MEDS: KETOROLAC 0.5% OP SOLN 5 ML BOTTLE 1 DROP EACH EYE (08:12)
[2020-02-27] MEDS: DEXAMETHASONE SOD PHOS INJ 4 MG/ML VIAL 6 MG IV PUSH (08:12)
[2020-02-27] MEDS: amLODIPine BESYLATE 5 MG TABLET 10 MG PO (08:12)
[2020-02-27] MEDS: LOSARTAN POTASSIUM 50 MG TABLET PO (08:12)
[2020-02-27] MEDS: INSULIN GLARGINE (*BKC) 100 UNITS/ML 7 UNITS SUB-Q (08:18)
--- NOTE | 2020-02-27 08:37 | P.PNINT_ITS ---
Progress Note: A&P Assessment and Plan (1) Encephalopathy acute: Code(s): G93.40 - Encephalopathy, unspecified Status: Acute Assessment and Plan: * Dilated pupils with slight asymmetry, unresponsive state, COVID+, HBP all worrisome for stroke (ischemic vs bleed); Postanoxic possible; postictal or nonconvulsive seizure possible; infection less likely * STAT CT Brain w/o NEGATIVE * Vertical nystagmus noted after CT c/w * Ativan 2mg and Keppra 1500mg ordered * LP ordered to exclude bleed, infection * [facility] all without beds available * [facility] contacted and awaiting call back * Dr. Singh discussed the gravity of her situation with her spouse * Neurology consulted 02/26 (2) Acute respiratory failure: Qualifiers: Respiratory failure complication: hypoxia and hypercapnia Qualified Code(s): J96.01 - Acute respiratory failure with hypoxia; J96.02 - Acute respiratory failure with hypercapnia Code(s): J96.00 - Acute respiratory failure, unspecified whether with hypoxia or hypercapnia Status: Acute Assessment and Plan: * 02/25: ABG 7.415/52/91/97% on AC rate 16, FIO2 40%, TV 400, PEEP 5 * 02/25: CXR with minimal improvement * Continue to support (3) CHF (congestive heart failure): Qualifiers: Heart failure chronicity: acute Heart failure type: diastolic Qualified Code(s): I50.31 - Acute diastolic (congestive) heart failure Code(s): I50.9 - Heart failure, unspecified Status: Acute Assessment and Plan: * 02/24: I/O 3040/1390, U.O 832 overnight (4) COVID-19: Code(s): U07.1 - COVID-19 Status: Acute Assessment and Plan: * 02/25: Remdesivir and dexamethasone inititated * 02/26: Redesivir stopped due the possibility of seizure as adverse effect (5) Pneumonia: Qualifiers: Laterality: unspecified laterality Lung location: unspecified part of lung Pneumonia type: due to unspecified organism Qualified Code(s): J18.9 - Pneumonia, unspecified organism Code(s): J18.9 - Pneumonia, unspecified organism Status: Acute Assessment and Plan: * Van, Ceftriaxone, Azithromycin * Ventilatory support (6) Elevated liver enzymes: Code(s): R74.8 - Abnormal levels of other serum enzymes Status: Acute Assessment and Plan: * Likely reactive, improving (7) HTN (hypertension), benign: Code(s): I10 - Essential (primary) hypertension Status: Chronic Assessment and Plan: * Labetalol 10mg iv q 2h prn for bp 180/110 or above (8) Type 2 diabetes mellitus, without long-term current use of insulin: Qualifiers: Diabetes mellitus complication status: without complication Qualified Code(s): E11.9 - Type 2 diabetes mellitus without complications Code(s): E11.9 - Type 2 diabetes mellitus without complications Status: Acute Assessment and Plan: * 02/25: Due to addition of steroids, increase Lantus to 20 U daily (9) Hypokalemia: Code(s): E87.6 - Hypokalemia Status: Acute Assessment and Plan: * 02/25: 3.1, received 40mEq per FT this AM. Subjective Date/time seen: 02/27/20 08:37 Interval history: Patient not feeling well for 3-4 weeks. Took Nystatin for thrush. Throat swelling and sob ensued. Treated with steroids, H1, and H2 blockers. ADMITTED 02/24 with COVID-19 and respiratory failure and possible laryngeal angioedema. Required intubation. Dexamethasone and Remdesivir begun 02/25. 02/26: Sedat
--- NOTE | 2020-02-27 08:37 | WPDINTPN ---
Progress Note: A&P Assessment and Plan (1) Encephalopathy acute: Code(s): G93.40 - Encephalopathy, unspecified Status: Acute Assessment and Plan: Dilated pupils with slight asymmetry, unresponsive state, COVID+, HBP all worrisome for stroke (ischemic vs bleed); Postanoxic possible; postictal or nonconvulsive seizure possible; infection less likely STAT CT Brain w/o NEGATIVE Vertical nystagmus noted after CT c/w Ativan 2mg and Keppra 1500mg ordered LP ordered to exclude bleed, infection [facility] all without beds available [facility] contacted and awaiting call back Dr. Singh discussed the gravity of her situation with her spouse Neurology consulted 02/26 (2) Acute respiratory failure: Qualifiers: Respiratory failure complication: hypoxia and hypercapnia Qualified Code(s): J96.01 - Acute respiratory failure with hypoxia; J96.02 - Acute respiratory failure with hypercapnia Code(s): J96.00 - Acute respiratory failure, unspecified whether with hypoxia or hypercapnia Status: Acute Assessment and Plan: 02/25: ABG 7.415/52/91/97% on AC rate 16, FIO2 40%, TV 400, PEEP 5 02/25: CXR with minimal improvement Continue to support (3) CHF (congestive heart failure): Qualifiers: Heart failure chronicity: acute Heart failure type: diastolic Qualified Code(s): I50.31 - Acute diastolic (congestive) heart failure Code(s): I50.9 - Heart failure, unspecified Status: Acute Assessment and Plan: 02/24: I/O 3040/1390, U.O 832 overnight (4) COVID-19: Code(s): U07.1 - COVID-19 Status: Acute Assessment and Plan: 02/25: Remdesivir and dexamethasone inititated 02/26: Redesivir stopped due the possibility of seizure as adverse effect (5) Pneumonia: Qualifiers: Laterality: unspecified laterality Lung location: unspecified part of lung Pneumonia type: due to unspecified organism Qualified Code(s): J18.9 - Pneumonia, unspecified organism Code(s): J18.9 - Pneumonia, unspecified organism Status: Acute Assessment and Plan: Van, Ceftriaxone, Azithromycin Ventilatory support (6) Elevated liver enzymes: Code(s): R74.8 - Abnormal levels of other serum enzymes Status: Acute Assessment and Plan: Likely reactive, improving (7) HTN (hypertension), benign: Code(s): I10 - Essential (primary) hypertension Status: Chronic Assessment and Plan: Labetalol 10mg iv q 2h prn for bp 180/110 or above (8) Type 2 diabetes mellitus, without long-term current use of insulin: Qualifiers: Diabetes mellitus complication status: without complication Qualified Code(s): E11.9 - Type 2 diabetes mellitus without complications Code(s): E11.9 - Type 2 diabetes mellitus without complications Status: Acute Assessment and Plan: 02/25: Due to addition of steroids, increase Lantus to 20 U daily (9) Hypokalemia: Code(s): E87.6 - Hypokalemia Status: Acute Assessment and Plan: 02/25: 3.1, received 40mEq per FT this AM. Subjective Date/time seen: 02/27/20 08:37 Interval history: Patient not feeling well for 3-4 weeks. Took Nystatin for thrush. Throat swelling and sob ensued. Treated with steroids, H1, and H2 blockers. ADMITTED 02/24 with COVID-19 and respiratory failure and possible laryngeal angioedema. Required intubation. Dexamethasone and Remdesivir begun 02/25. 02/26: Sedation weaned and patient unresponsive. Further evaluation was indertaken. Review of Systems Review of Systems: ROS unobtainable: Yes unobtainable due to medical condition Exam Narrative: Exam Narrative: HEENT: PUPILS FIXED AND DILATED WITH SLIGHT ANISOCORIA, CORNEAL REFLEX NEGATIVE, NO DOLL'S EYES, VERTICAL NYSTAGMUS NOTED ON RE-EXAMINATION sclerae nonicteric, ET tube in place. NECK: No JVD CHEST: Scattered exp wheezes HEART:
[2020-02-27] MEDS: POTASSIUM CHLORIDE 20 MEQ PACKET (FOR LIQUID) 40 MEQ PO (10:03)
[2020-02-27] MEDS: INSULIN GLARGINE (*BKC) 100 UNITS/ML 20 UNITS SUB-Q (10:03)
[2020-02-27] MEDS: REMDESIVIR 100 MG/NS 250 ML 100 MG/250 ML BAG 250 MG IVPB (10:03)
--- NOTE | 2020-02-27 12:00 | PM.PROC ---
Procedure Note - Detailed Date of procedure: 02/27/20 Pre-op diagnosis: acute respiratory failure,chf exacerbation,covid mental status changes, obtundation Post-op diagnosis: same Procedure performed: Attempeted Lumbar Puncture Description of procedure: The patient last dose of Lovenox 40 mg was 16 hours prior to the procedure and was held after the procedure as well. After appropriate consent and time out was take the patient was placed in the left lateral decubitus position. The lumbar area was sterilized with lidocaine and then drapped. 1% lidocaine was given to the L4-L5 region and L5-S1. The lumbar needle was introduced to the area gently but unfortunately after many attempts the epidural space could not be penetrated and hence no CSF was drained. The procedure was later aborted. Surgeon: Abdon Singh MD Drains: No Packing: No Complications: No immediate complications Condition: stable Disposition: ICU
--- NOTE | 2020-02-27 12:00 | WPDPROCEDUR ---
Procedures Lumbar Puncture Time out performed: Yes Patient position: left lateral decubitus Skin prep: 0.5% Chlorhexidine/Alcohol Anesthesia: Lidocaine 1% Spinal needle gauge: 22G Interspace used: L4-L5 Spinal Fluid: unable to obtain and multiple attempts Complications: none Additional comments: Multiple attempts, dry tap. No complications
[2020-02-27] MEDS: LORazepam INJ (*CRX) 2 MG/ML VIAL IV PUSH ×2 (12:23)
[2020-02-27 12:51] LABS: Glucose Point of Care 427 (65-105)
[2020-02-27] MEDS: LACTATED RINGERS 1,000 ML 100 ML IV CONT (13:07)
[2020-02-27] MEDS: AMOXICILLIN 250 MG/5 ML SUSPENSION 500 MG PO (13:08)
--- NOTE | 2020-02-27 13:20 | PM.OP ---
Procedure Note - Brief Procedure Note - Brief Date of procedure: 02/27/20 Pre-op diagnosis: acute respiratory failure,chf exacerbation,covid Description of procedure: an LP was attempted for acute mental status changes and seizure to r/o encephalitis from HSV and others but was unsuccessful. The patient had been off low dose Lovenox for 16 hours prior to procedures and her Cr and platelets were normal. There was no significant bleeding Surgeon: Abdon Singh MD
--- NOTE | 2020-02-27 15:46 | PC.NURSE ---
Pt transferred to [facility] in [place], [place] by air for neurology eval and higher level of care. Bilateral pupils dilated and unreactive at time of transfer, no cough, no gag, no babinski, no spontaneous movement. Spoke to patients many times on the phone who states that pt is to remain a DNR at this time per her wishes. Pt has healthcare POA form at home but unable to bring to hospital as he is on quarantine. DNR order placed per MD Singh. Pt stable at time of air transfer; report called to Radha DAWKINS at [facility].
--- NOTE | 2020-02-27 18:20 | P.TS_ITS ---
Transfer Discharge Sum: Prov Provider Date of admission: 02/25/20 11:17 Primary care physician: Festus Middleton DO Admitting clinician: Sharif Huertas MD Consults: 02/25/20 11:18 Consult to Physician Routine Comment: DR. ANTOINE AWARE Consulting Provider: Ajay Christy scallop raker/MD group to consult: [place] Reason for consultation: covid 19, respiratory failure, chf Has provider been notified: Yes 02/27/20 Consult to Physician Routine Comment: Consulting Provider: Dayton Castillo Reason for consultation: nonconvulsive status epilepticus Has provider been notified: No DS: Admitting Diagnosis Admitting Diagnosis Admitting Diagnosis: acute respiratory failure,chf exacerbation,covid DS: Discharge Diagnosis Discharge Diagnosis (1) Encephalopathy acute: Code(s): G93.40 - Encephalopathy, unspecified Status: Acute Assessment and Plan: * Dilated pupils with slight asymmetry, unresponsive state, COVID+, HBP all worrisome for stroke (ischemic vs bleed); Postanoxic possible; postictal or nonconvulsive seizure possible; infection less likely * STAT CT Brain w/o NEGATIVE * Vertical nystagmus noted after CT c/w * Ativan 2mg and Keppra 1500mg ordered * LP ordered to exclude bleed, infection but unable to complete * [facility] all without beds available * With excepted by [facility] in [facility] * Dr. Singh discussed the gravity of her situation with her spouse * (2) Acute respiratory failure: Qualifiers: Respiratory failure complication: hypoxia and hypercapnia Qualified Code(s): J96.01 - Acute respiratory failure with hypoxia; J96.02 - Acute respiratory failure with hypercapnia Code(s): J96.00 - Acute respiratory failure, unspecified whether with hypoxia or hypercapnia Status: Acute Assessment and Plan: * 02/25: ABG 7.415/52/91/97% on AC rate 16, FIO2 40%, TV 400, PEEP 5 * 02/25: CXR with minimal improvement * Continue to support (3) CHF (congestive heart failure): Qualifiers: Heart failure chronicity: acute Heart failure type: diastolic Qualified Code(s): I50.31 - Acute diastolic (congestive) heart failure Code(s): I50.9 - Heart failure, unspecified Status: Acute Assessment and Plan: * 02/24: I/O 3040/1390, U.O 832 overnight * Echo 50-55% with grade 1 diastolic dysfunction (4) COVID-19: Code(s): U07.1 - COVID-19 Status: Acute Assessment and Plan: * 02/25: Remdesivir and dexamethasone inititated * 02/26: Redesivir stopped due the possibility of seizure as adverse effect (5) Pneumonia: Qualifiers: Laterality: unspecified laterality Lung location: unspecified part of lung Pneumonia type: due to unspecified organism Qualified Code(s): J18.9 - Pneumonia, unspecified organism Code(s): J18.9 - Pneumonia, unspecified organism Status: Acute Assessment and Plan: * Van, Ceftriaxone, Azithromycin * Ventilatory support (6) Elevated liver enzymes: Code(s): R74.8 - Abnormal levels of other serum enzymes Status: Acute Assessment and Plan: * Likely reactive, improving and right upper quadrant ultrasound revealed absent gallbladder with fatty infiltration of the liver (7) HTN (hypertension), benign: Code(s): I10 - Essential (primary) hypertension Status: Chronic Assessment and Plan: * Labetalol 10mg iv q 2h prn for bp 180/110 o
--- NOTE | 2020-02-27 18:20 | PM.TDS ---
Transfer Discharge Sum: Prov Provider Date of admission: 02/25/20 11:17 Primary care physician: Festus Middleton DO Admitting clinician: Sharif Huertas MD Consults: 02/25/20 11:18 Consult to Physician Routine Comment: DR. ANTOINE AWARE Consulting Provider: Ajay Christy yard caller/MD group to consult: [place] Reason for consultation: covid 19, respiratory failure, chf Has provider been notified: Yes 02/27/20 Consult to Physician Routine Comment: Consulting Provider: Dayton Castillo Reason for consultation: nonconvulsive status epilepticus Has provider been notified: No DS: Admitting Diagnosis Admitting Diagnosis Admitting Diagnosis: acute respiratory failure,chf exacerbation,covid DS: Discharge Diagnosis Discharge Diagnosis (1) Encephalopathy acute: Code(s): G93.40 - Encephalopathy, unspecified Status: Acute Assessment and Plan: Dilated pupils with slight asymmetry, unresponsive state, COVID+, HBP all worrisome for stroke (ischemic vs bleed); Postanoxic possible; postictal or nonconvulsive seizure possible; infection less likely STAT CT Brain w/o NEGATIVE Vertical nystagmus noted after CT c/w Ativan 2mg and Keppra 1500mg ordered LP ordered to exclude bleed, infection but unable to complete [facility] all without beds available With excepted by [facility] Dr. Singh discussed the gravity of her situation with her spouse (2) Acute respiratory failure: Qualifiers: Respiratory failure complication: hypoxia and hypercapnia Qualified Code(s): J96.01 - Acute respiratory failure with hypoxia; J96.02 - Acute respiratory failure with hypercapnia Code(s): J96.00 - Acute respiratory failure, unspecified whether with hypoxia or hypercapnia Status: Acute Assessment and Plan: 02/25: ABG 7.415/52/91/97% on AC rate 16, FIO2 40%, TV 400, PEEP 5 02/25: CXR with minimal improvement Continue to support (3) CHF (congestive heart failure): Qualifiers: Heart failure chronicity: acute Heart failure type: diastolic Qualified Code(s): I50.31 - Acute diastolic (congestive) heart failure Code(s): I50.9 - Heart failure, unspecified Status: Acute Assessment and Plan: 02/24: I/O 3040/1390, U.O 832 overnight Echo 50-55% with grade 1 diastolic dysfunction (4) COVID-19: Code(s): U07.1 - COVID-19 Status: Acute Assessment and Plan: 02/25: Remdesivir and dexamethasone inititated 02/26: Redesivir stopped due the possibility of seizure as adverse effect (5) Pneumonia: Qualifiers: Laterality: unspecified laterality Lung location: unspecified part of lung Pneumonia type: due to unspecified organism Qualified Code(s): J18.9 - Pneumonia, unspecified organism Code(s): J18.9 - Pneumonia, unspecified organism Status: Acute Assessment and Plan: Van, Ceftriaxone, Azithromycin Ventilatory support (6) Elevated liver enzymes: Code(s): R74.8 - Abnormal levels of other serum enzymes Status: Acute Assessment and Plan: Likely reactive, improving and right upper quadrant ultrasound revealed absent gallbladder with fatty infiltration of the liver (7) HTN (hypertension), benign: Code(s): I10 - Essential (primary) hypertension Status: Chronic Assessment and Plan: Labetalol 10mg iv q 2h prn for bp 180/110 or above (8) Type 2 diabetes mellitus, without long-term current use of insulin: Qualifiers: Diabetes mellitus complication status: without complication Qualified Code(s): E11.9 - Type 2 diabetes mellitus without complications Code(s): E11.9 - Type 2 diabetes mellitus without complications Status: Acute Assessment and Plan: 02/25: Due to addition of steroids, increase Lantus to 20 U daily with fasting blood sugar of 338 (9) Hypokalemia: Code(s): E87.6
== END 2020-02-27 15:30 | disposition short-term general hospital (02) | DRG 208 ==
LOC: ANHED 08:04 → ANHICU 14:36
PROVIDERS: Internal Medicine; Nurse Practitioner; Admitting Provider Family Medicine; Emergency Provider Emergency Medicine; PCP Internal Medicine; Visit Provider Internal Medicine
DX: U07.1 COVID-19 (principal); J12.89 Other viral pneumonia; J96.01 Acute respiratory failure with hypoxia; J96.02 Acute respiratory failure with hypercapnia; I50.31 Acute diastolic (congestive) heart failure; G93.49 Other encephalopathy; T78.3XXA Angioneurotic edema, initial encounter; J02.9 Acute pharyngitis, unspecified; R13.10 Dysphagia, unspecified; R56.9 Unspecified convulsions; R41.89 Other symptoms and signs involving cognitive functions and awareness; T36.7X5A Adverse effect of antifungal antibiotics, systemically used, initial encounter; R74.8 Abnormal levels of other serum enzymes; E11.9 Type 2 diabetes mellitus without complications; I11.0 Hypertensive heart disease with heart failure; E87.6 Hypokalemia; R79.89 Other specified abnormal findings of blood chemistry; E03.9 Hypothyroidism, unspecified; H55.09 Other forms of nystagmus; K21.9 Gastro-esophageal reflux disease without esophagitis; E78.5 Hyperlipidemia, unspecified; Z90.49 Acquired absence of other specified parts of digestive tract; Z85.3 Personal history of malignant neoplasm of breast
CPT/HCPCS: 31500; 36415; 36569; 36600; 51702; 70450; 70491; 71045; 76705; 80053; 80074; 80202; 82375; 82728; 82805; 83036; 83050; 83605; 83615; 83735; 83880; 84100; 84443; 84460; 85025; 85027; 85610; 85730; 86140; 87040; 87081; 87880; 93005; 93306; 94003; 94640; 96365; 96375; 99291; A9270; C1751; J0330; J0360; J0456; J0696; J1100; J1200; J1650; J1815; J1940; J1953; J2060; J2250; J2405; J2704; J3370; J3480; J7030; J7120; Q9967